=== PATIENT | female | born 1955 | race African-American/Black ===

== ENCOUNTER 2018-11-01 16:22 | Inpatient (IN) | payer OTHER ==
[~2018-11-01] VITALS: Ht 157.5 cm; Wt 103.0 kg
[~2018-11-01 16:22] MED LIST: ALBU8HFA IH; ASPI81 PO; CLON0.1T2 PO; DULO60CA44 PO; ESTR-95 PO; HYDR-4069 PO; LEVO50 PO; LURA80 PO; METO-558 PO; OMEP20 PO; OXCA300T29 PO; PRAV40TA4 PO; SPIR25 PO; [UNRECOGNIZED DRUG - CODE] INJ
[2018-11-01] MEDS ORDERED: ISOS60TA4 PO (17:04)
[2018-11-01] MEDS ORDERED: CHOL100018 PO (17:04)
[2018-11-01] MEDS ORDERED: LAMO100 PO (17:04)
[2018-11-01] MEDS ORDERED: VENL-67 PO (17:04)
[2018-11-01] MEDS ORDERED: LOSA50TA64 PO (17:04)
[2018-11-01 17:10] LABS: BASOPHILS % (AUTO) 0.9 % (0.0-2.0); EOSINOPHILS % (AUTO) 0.7 % (1.0-6.0); HEMATOCRIT 33.2 % (36-46); HEMOGLOBIN 11.2 g/dL (12.0-16.0); LYMPHOCYTES # (AUTO) 1.5 K/uL (1.0-4.8); LYMPHOCYTES % (AUTO) 19.8 % (22.0-44.0); MEAN CORPUSCULAR HEMOGLOBIN 31.7 pg (26.0-34.0); MEAN CORPUSCULAR HGB CONC 33.8 G/dL (31.0-37.0); MEAN CORPUSCULAR VOLUME 94 fL (80-100); MONOCYTES # (AUTO) 0.5 K/uL (0.1-1.0); MONOCYTES % (AUTO) 6.9 % (2.0-9.0); NEUTROPHILS # (AUTO) 5.3 K/uL (1.8-7.7); NEUTROPHILS % (AUTO) 71.7 % (40.0-70.0); PLATELET COUNT (AUTO) 405 K/uL (150-450); RED BLOOD CELL COUNT(AUTO) 3.54 MIL/uL (4.00-5.20); RED CELL DISTRIBUTION WIDTH 13.2 % (11.5-14.5)
[2018-11-01 17:19] LABS: ANION GAP 14 mmol/L (8-16); CALCIUM, TOTAL 9.1 mg/dL (8.8-10.5); CARBON DIOXIDE 21 mmol/L (22-29); CHLORIDE 101 mmol/L (98-107); CREATININE 1.02 mg/dL (0.60-1.30); GLOMERULAR FILTR. RATE CALC > 60 mL/min (>60); GLUCOSE,RANDOM 121 mg/dL (70-110); POTASSIUM 4.4 mmol/L (3.5-5.1); SODIUM SERUM 136 mmol/L (136-145); UREA NITROGEN, BLOOD 20 mg/dL (7-18)
[2018-11-01 17:34] LABS: B-TYPE NATRIURETIC PEPTIDE 92 pg/mL (0-100)
[2018-11-01 17:36] LABS: PROTHROMBIN TIME 10.2 SEC (9.4-11.6)
[2018-11-01 17:44] LABS: ALANINE AMINOTRANSFERASE 105 U/L (12-78); ALBUMIN 3.1 g/dL (3.4-5.0); ALKALINE PHOSPHATASE 193 U/L (46-116); ASPARTATE AMINOTRANSFERASE 299 U/L (15-37); BILIRUBIN,TOTAL 0.5 mg/dL (0.1-1.0); CREATINE KINASE, TOTAL ONLY 75 U/L (26-192); TOTAL PROTEIN, SERUM 7.1 g/dL (6.4-8.2)
[2018-11-01 18:51] LABS: APPEARANCE,URINE CLOUDY (CLEAR); BILIRUBIN,URINE PRELIM. POSITIVE (NEGATIVE); GLUCOSE, URINE (UA) NEGATIVE (NEGATIVE); KETONES,URINE NEGATIVE (NEGATIVE); LEUKOCYTE ESTERASE ,URINE TRACE (NEGATIVE); NITRATE,URINE NEGATIVE (NEGATIVE); OCCULT BLOOD,URINE NEGATIVE (NEGATIVE); PROTEIN,URINE POS 1+ (NEGATIVE)
[2018-11-01] MEDS ORDERED: KETOROLAC TROMETHAMINE 30 MG/ML VIAL IVP ONE (19:00)
[2018-11-01] MEDS ORDERED: SODIUM CHLORIDE 0.9% 1,000 ML IV ONE (19:00)
[2018-11-01] MEDS ORDERED: ONDANSETRON HCL 4 MG/2 ML VIAL IVP ONE (19:00)
[2018-11-01 19:01] LABS: BACTERIA,URINE Few /HPF (None Seen); CALCIUM OXALATE CRYSTALS,UR Moderate /LPF (None Seen); RBC,URINE 0-2 /HPF (0-2); SQUAMOUS EPITHELIAL CELL,UR Many /LPF (None Seen)
[2018-11-01] MEDS ORDERED: SODIUM CHLORIDE 0.9% 100 ML ONE (19:35)
[2018-11-01] MEDS ORDERED: IOVERSOL 350 MG/ML 150 ML VIAL ONE (19:35)
[2018-11-01 21:21] VITALS: BP 154/74
[2018-11-01] MEDS ORDERED: 0.9% SODIUM CHLORIDE 10 ML SYRINGE IVP PRN (21:30)
[2018-11-01] MEDS ORDERED: ONDANSETRON HCL 4 MG/2 ML VIAL IVP PRN (21:30)
[2018-11-01] MEDS ORDERED: ACETAMINOPHEN 325 MG TABLET PO PRN (21:30)
[2018-11-01 23:27] VITALS: BP 124/60
[2018-11-01] MEDS: MAG HYDROX/AL HYDROX/SIMETH 30 ML SUSP UDCUP PO PRN (23:27)
[2018-11-01] MEDS: ACETAMINOPHEN 325 MG TABLET PO PRN (23:29)
[2018-11-02 04:28] VITALS: BP 90/55
[2018-11-02] MEDS: LEVOTHYROXINE SODIUM 50 MCG TABLET PO SCH (05:46)
[2018-11-02] MEDS: MAG HYDROX/AL HYDROX/SIMETH 30 ML SUSP UDCUP PO PRN (05:46)
[2018-11-02 06:44] LABS: BASOPHILS % (AUTO) 0.1 % (0.0-2.0); EOSINOPHILS % (AUTO) 0.1 % (1.0-6.0); HEMATOCRIT 29.4 % (36-46); LYMPHOCYTES # (AUTO) 0.3 K/uL (1.0-4.8); LYMPHOCYTES % (AUTO) 2.2 % (22.0-44.0); MEAN CORPUSCULAR HEMOGLOBIN 31.9 pg (26.0-34.0); MEAN CORPUSCULAR HGB CONC 34.1 G/dL (31.0-37.0); MEAN CORPUSCULAR VOLUME 94 fL (80-100); MONOCYTES # (AUTO) 0.9 K/uL (0.1-1.0); MONOCYTES % (AUTO) 7.3 % (2.0-9.0); NEUTROPHILS # (AUTO) 10.8 K/uL (1.8-7.7); PLATELET COUNT (AUTO) 360 K/uL (150-450); RED BLOOD CELL COUNT(AUTO) 3.13 MIL/uL (4.00-5.20); RED CELL DISTRIBUTION WIDTH 13.6 % (11.5-14.5)
[2018-11-02 06:47] LABS: NEUTROPHILS % (AUTO) 90.3 % (40.0-70.0)
[2018-11-02 07:12] LABS: ALBUMIN 2.7 g/dL (3.4-5.0); BILIRUBIN,TOTAL 1.4 mg/dL (0.1-1.0); CALCIUM, TOTAL 8.4 mg/dL (8.8-10.5); CREATININE 1.45 mg/dL (0.60-1.30); POTASSIUM 3.7 mmol/L (3.5-5.1); TOTAL PROTEIN, SERUM 6.1 g/dL (6.4-8.2)
[2018-11-02 07:21] VITALS: BP 109/53
[2018-11-02] MEDS ORDERED: SPIRONOLACTONE 25 MG TABLET PO SCH (09:00)
[2018-11-02] MEDS ORDERED: LOSARTAN POTASSIUM 50 MG TABLET PO SCH (09:00)
[2018-11-02] MEDS ORDERED: FAMOTIDINE 10 MG/ML 2 ML VIAL IVP SCH ×2 (09:00)
[2018-11-02] MEDS: ASPIRIN 81 MG CHEWABLE TABLET PO SCH (09:19)
[2018-11-02] MEDS: LURASIDONE HCL 80 MG TABLET PO SCH ×2 (09:19→18:14)
[2018-11-02] MEDS: DULoxetine HCL 60 MG CAPSULE PO SCH (09:20)
[2018-11-02] MEDS: METOPROLOL SUCCINATE 50 MG ER TABLET PO SCH (09:20)
[2018-11-02] MEDS: OXcarbazepine 300 MG TABLET PO SCH ×2 (09:20→20:02)
[2018-11-02] MEDS: LamoTRIgine 100 MG TABLET PO SCH (09:20)
[2018-11-02] MEDS: ACETAMINOPHEN 325 MG TABLET PO PRN (09:25)
[2018-11-02] MEDS ORDERED: HYDROCODONE/ACETAMINOPHEN 10-325 MG TABLET PO PRN (10:45)
[2018-11-02] MEDS ORDERED: ESTRADIOL 1 MG TABLET PO ONE (10:45)
[2018-11-02] MEDS ORDERED: ONDANSETRON HCL 4 MG/2 ML VIAL IM PRN (11:00)
[2018-11-02] MEDS ORDERED: ALBUTEROL SULFATE 2.5 MG/0.5 ML NEB SOLUTION NEB PRN (11:00)
[2018-11-02] MEDS ORDERED: IPRATROPIUM BROMIDE 0.5 MG/2.5 ML NEB SOLUTION NEB PRN (11:00)
[2018-11-02 11:01] VITALS: BP 106/49
[2018-11-02] MEDS: SODIUM CHLORIDE 0.9% 1,000 ML IV SCH (11:06)
[2018-11-02] MEDS: MORPHINE SULFATE 2 MG/ML SYRINGE IVP PRN (11:37)
[2018-11-02] MEDS: CefTRIAXone 1 GM/DEXTROSE 50 ML IV SCH (11:38)
[2018-11-02] MEDS: ESTRADIOL 1 MG TABLET PO SCH (11:43)
[2018-11-02 12:44] LABS: THYROID STIMULATING HORMONE 0.8 uIU/mL (0.36-3.74)
[2018-11-02] MEDS: MetroNIDAZOLE 500 MG/NACL 100 ML IV SCH ×2 (13:04→20:02)
[2018-11-02 15:42] VITALS: BP 105/68
[2018-11-02] MEDS: HYDROCODONE/ACETAMINOPHEN 10-325 MG TABLET PO PRN (18:55)
[2018-11-02] MEDS: FAMOTIDINE 10 MG/ML 2 ML VIAL IVP SCH (20:02)
[2018-11-02] MEDS: CloNIDine HCL 0.1 MG TABLET PO SCH (20:04)
[2018-11-02 20:18] VITALS: BP 112/52
[2018-11-02] MEDS ORDERED: PRAVASTATIN SODIUM 40 MG TABLET PO SCH (21:00)
[2018-11-02 23:33] VITALS: BP 105/67
[2018-11-03] VITALS (8 sets, daily range): BP systolic 68–119; BP diastolic 49–66
[2018-11-03] MEDS: MetroNIDAZOLE 500 MG/NACL 100 ML IV SCH ×3 (04:03→21:45)
[2018-11-03] MEDS: SODIUM CHLORIDE 0.9% 1,000 ML IV SCH ×2 (04:03→17:59)
[2018-11-03] MEDS: LEVOTHYROXINE SODIUM 50 MCG TABLET PO SCH (05:37)
[2018-11-03 06:14] LABS: HEMATOCRIT 30.9 % (36-46); HEMOGLOBIN 10.5 g/dL (12.0-16.0); MEAN CORPUSCULAR HEMOGLOBIN 31.8 pg (26.0-34.0); MEAN CORPUSCULAR HGB CONC 33.9 G/dL (31.0-37.0); MEAN CORPUSCULAR VOLUME 94 fL (80-100); PLATELET COUNT (AUTO) 321 K/uL (150-450); RED BLOOD CELL COUNT(AUTO) 3.29 MIL/uL (4.00-5.20); RED CELL DISTRIBUTION WIDTH 14.2 % (11.5-14.5)
[2018-11-03 06:15] LABS: BAND NEUTROPHILS % (MANUAL) 0 % (0-5)
[2018-11-03] MEDS: HYDROCODONE/ACETAMINOPHEN 10-325 MG TABLET PO PRN ×3 (06:25→23:54)
[2018-11-03 06:27] LABS: ALANINE AMINOTRANSFERASE 83 U/L (12-78); ALBUMIN 2.6 g/dL (3.4-5.0); ALKALINE PHOSPHATASE 207 U/L (46-116); ANION GAP 13 mmol/L (8-16); ASPARTATE AMINOTRANSFERASE 87 U/L (15-37); BILIRUBIN,TOTAL 1.2 mg/dL (0.1-1.0); CALCIUM, TOTAL 8.5 mg/dL (8.8-10.5); CARBON DIOXIDE 22 mmol/L (22-29); CHLORIDE 107 mmol/L (98-107); CREATININE 1.08 mg/dL (0.60-1.30); GLOMERULAR FILTR. RATE CALC > 60 mL/min (>60); GLUCOSE,RANDOM 117 mg/dL (70-110); POTASSIUM 4.8 mmol/L (3.5-5.1); SODIUM SERUM 142 mmol/L (136-145); TOTAL PROTEIN, SERUM 6.7 g/dL (6.4-8.2); UREA NITROGEN, BLOOD 13 mg/dL (7-18)
[2018-11-03 06:35] LABS: LYMPHOCYTES % (MANUAL) 12 % (22-44); MONOCYTES % (MANUAL) 5 % (2-9); SEGMENTED NEUTROPHILS % 83 % (40-70)
[2018-11-03] MEDS: LURASIDONE HCL 80 MG TABLET PO SCH ×2 (08:00→18:06)
[2018-11-03] MEDS: OXcarbazepine 300 MG TABLET PO SCH ×2 (09:00→21:00)
[2018-11-03] MEDS: ASPIRIN 81 MG CHEWABLE TABLET PO SCH (09:00)
[2018-11-03] MEDS: METOPROLOL SUCCINATE 50 MG ER TABLET PO SCH (09:00)
[2018-11-03] MEDS: LamoTRIgine 100 MG TABLET PO SCH (09:00)
[2018-11-03] MEDS: ESTRADIOL 1 MG TABLET PO SCH (09:00)
[2018-11-03] MEDS: DULoxetine HCL 60 MG CAPSULE PO SCH (09:00)
[2018-11-03] MEDS: CefTRIAXone 1 GM/DEXTROSE 50 ML IV SCH (11:22)
[2018-11-03] MEDS: FAMOTIDINE 10 MG/ML 2 ML VIAL IVP SCH ×2 (11:22→21:45)
[2018-11-03] MEDS ORDERED: ROCURONIUM BROMIDE 10 MG/ML 5 ML VIAL IVP ONE (12:00)
[2018-11-03] MEDS ORDERED: SUCCINYLCHOLINE CHLORIDE 20 MG/ML 10 ML VIAL IVP ONE (12:00)
[2018-11-03] MEDS ORDERED: FentaNYL CITRATE-PF 100 MCG/2 ML VIAL IVP ONE (12:00)
[2018-11-03] MEDS ORDERED: LIDOCAINE/PF 2% 5 ML VIAL INJ ONE (12:00)
[2018-11-03] MEDS ORDERED: DEXAMETHASONE SOD PHOS 4 MG/ML VIAL IVP ONE (12:00)
[2018-11-03] MEDS ORDERED: MIDAZOLAM HCL 2 MG/2 ML VIAL IVP ONE (12:00)
[2018-11-03] MEDS ORDERED: PROPOFOL 1% 20 ML VIAL IVP ONE (12:00)
[2018-11-03] MEDS ORDERED: ONDANSETRON HCL 4 MG/2 ML VIAL IVP ONE (12:00)
[2018-11-03] MEDS ORDERED: KETOROLAC TROMETHAMINE 60 MG/2 ML VIAL IM ONE (12:00)
[2018-11-03] MEDS ORDERED: HYDROmorphone 2 MG/ML SYRINGE IVP ONE (12:00)
[2018-11-03] MEDS ORDERED: SODIUM CL IRRIG SOLN BAG 3,000 ML IRRIG ONE (13:29)
[2018-11-03] MEDS ORDERED: IOHEXOL 240 MG/ML 20 ML VIAL ONE (13:30)
[2018-11-03] MEDS ORDERED: BUPIVACAINE 0.25%/EPI 1:200,000/PF 10 ML VIAL ONE ×2 (13:30→13:31)
[2018-11-03] MEDS ORDERED: ACETAMINOPHEN 1000 MG/ISO-OSM 100 ML IV ONE (13:35)
[2018-11-03] MEDS ORDERED: SODIUM CHLORIDE 0.9% 1,000 ML IV ONE (15:30)
[2018-11-03] MEDS ORDERED: RINGERS SOLUTION,LACTATED 1,000 ML IV SCH (16:00)
[2018-11-03] MEDS ORDERED: SODIUM CHLORIDE 0.9% 500 ML IV ONE (17:00)
[2018-11-03] MEDS ORDERED: FentaNYL CITRATE-PF 100 MCG/2 ML VIAL IVP PRN (17:00)
[2018-11-03] MEDS ORDERED: HYDROmorphone 2 MG/ML SYRINGE IVP PRN (17:00)
[2018-11-03] MEDS ORDERED: RINGERS LACTATED IV SCH (20:48)
[2018-11-03] MEDS: OXYGEN THERAPY IH SCH (20:50)
[2018-11-03] MEDS ORDERED: RINGERS LACTATED IV ONE (21:00)
[2018-11-03] MEDS: CloNIDine HCL 0.1 MG TABLET PO SCH (21:00)
[2018-11-03] MEDS ORDERED: RINGERS SOLUTION,LACTATED 1,000 ML IV ONE (21:15)
[2018-11-03 21:17] LABS: BASOPHILS % (AUTO) 0.3 % (0.0-2.0); EOSINOPHILS % (AUTO) 0 % (1.0-6.0); HEMOGLOBIN 7.6 g/dL (12.0-16.0); LYMPHOCYTES # (AUTO) 0.8 K/uL (1.0-4.8); LYMPHOCYTES % (AUTO) 6.7 % (22.0-44.0); MEAN CORPUSCULAR HEMOGLOBIN 31.4 pg (26.0-34.0); MEAN CORPUSCULAR HGB CONC 32.9 G/dL (31.0-37.0); MEAN CORPUSCULAR VOLUME 95 fL (80-100); MONOCYTES # (AUTO) 0.6 K/uL (0.1-1.0); MONOCYTES % (AUTO) 5.3 % (2.0-9.0); NEUTROPHILS # (AUTO) 10.4 K/uL (1.8-7.7); PLATELET COUNT (AUTO) 361 K/uL (150-450); RED BLOOD CELL COUNT(AUTO) 2.41 MIL/uL (4.00-5.20); RED CELL DISTRIBUTION WIDTH 14.2 % (11.5-14.5)
[2018-11-03 21:20] LABS: NEUTROPHILS % (AUTO) 87.7 % (40.0-70.0)
[2018-11-03 21:32] LABS: INR 1.1 (0.9-1.1); PROTHROMBIN TIME 11.3 SEC (9.4-11.6)
[2018-11-04] VITALS (14 sets, daily range): BP systolic 94–139; BP diastolic 55–77
[2018-11-04] MEDS: MORPHINE SULFATE 2 MG/ML SYRINGE IVP PRN (02:44)
[2018-11-04] MEDS: ACETAMINOPHEN 325 MG TABLET PO PRN (04:35)
[2018-11-04] MEDS: MetroNIDAZOLE 500 MG/NACL 100 ML IV SCH ×3 (04:36→20:58)
[2018-11-04 05:11] LABS: GLUCOMETER DEV NAME(LOC) 5N.1; GLUCOSE,POINT OF CARE 174 MG/DL (70-110)
[2018-11-04] MEDS: HYDROCODONE/ACETAMINOPHEN 10-325 MG TABLET PO PRN ×2 (06:21→14:42)
[2018-11-04] MEDS: LEVOTHYROXINE SODIUM 50 MCG TABLET PO SCH (06:21)
[2018-11-04] MEDS: ONDANSETRON HCL 4 MG/2 ML VIAL IVP PRN ×2 (06:32→22:33)
[2018-11-04 06:36] LABS: BASOPHILS % (AUTO) 0.2 % (0.0-2.0); EOSINOPHILS % (AUTO) 0.4 % (1.0-6.0); HEMATOCRIT 24.6 % (36-46); HEMOGLOBIN 8.4 g/dL (12.0-16.0); LYMPHOCYTES # (AUTO) 1.1 K/uL (1.0-4.8); LYMPHOCYTES % (AUTO) 10.9 % (22.0-44.0); MEAN CORPUSCULAR HEMOGLOBIN 31.2 pg (26.0-34.0); MEAN CORPUSCULAR HGB CONC 34.3 G/dL (31.0-37.0); MEAN CORPUSCULAR VOLUME 91 fL (80-100); MONOCYTES # (AUTO) 0.6 K/uL (0.1-1.0); MONOCYTES % (AUTO) 5.9 % (2.0-9.0); NEUTROPHILS # (AUTO) 8.6 K/uL (1.8-7.7); NEUTROPHILS % (AUTO) 82.6 % (40.0-70.0); PLATELET COUNT (AUTO) 299 K/uL (150-450); RED CELL DISTRIBUTION WIDTH 16.2 % (11.5-14.5)
[2018-11-04 07:04] LABS: ALANINE AMINOTRANSFERASE 69 U/L (12-78); ALBUMIN 2.1 g/dL (3.4-5.0); ALKALINE PHOSPHATASE 156 U/L (46-116); ANION GAP 8 mmol/L (8-16); ASPARTATE AMINOTRANSFERASE 63 U/L (15-37); BILIRUBIN,TOTAL 0.4 mg/dL (0.1-1.0); CALCIUM, TOTAL 7.2 mg/dL (8.8-10.5); CARBON DIOXIDE 22 mmol/L (22-29); CHLORIDE 106 mmol/L (98-107); CREATININE 1.07 mg/dL (0.60-1.30); GLOMERULAR FILTR. RATE CALC > 60 mL/min (>60); GLUCOSE,RANDOM 138 mg/dL (70-110); POTASSIUM 4.7 mmol/L (3.5-5.1); SODIUM SERUM 136 mmol/L (136-145); TOTAL PROTEIN, SERUM 5.4 g/dL (6.4-8.2); UREA NITROGEN, BLOOD 12 mg/dL (7-18)
[2018-11-04] MEDS: HYDROmorphone 2 MG/ML SYRINGE IVP PRN ×4 (08:41→22:28)
[2018-11-04] MEDS: FAMOTIDINE 10 MG/ML 2 ML VIAL IVP SCH ×2 (08:43→20:59)
[2018-11-04] MEDS: OXYGEN THERAPY IH SCH ×2 (08:43→20:59)
[2018-11-04] MEDS: LamoTRIgine 100 MG TABLET PO SCH (10:32)
[2018-11-04] MEDS: METOPROLOL SUCCINATE 50 MG ER TABLET PO SCH (10:32)
[2018-11-04] MEDS: ESTRADIOL 1 MG TABLET PO SCH (10:32)
[2018-11-04] MEDS: DULoxetine HCL 60 MG CAPSULE PO SCH (10:32)
[2018-11-04] MEDS: LURASIDONE HCL 80 MG TABLET PO SCH ×2 (10:32→18:11)
[2018-11-04] MEDS: OXcarbazepine 300 MG TABLET PO SCH ×2 (10:33→20:59)
[2018-11-04] MEDS: CefTRIAXone 1 GM/DEXTROSE 50 ML IV SCH (10:33)
[2018-11-04] MEDS: SODIUM CHLORIDE 0.9% 1,000 ML IV SCH (18:12)
[2018-11-04] MEDS: CloNIDine HCL 0.1 MG TABLET PO SCH (20:59)
[2018-11-05] MEDS: MetroNIDAZOLE 500 MG/NACL 100 ML IV SCH ×3 (04:39→19:48)
[2018-11-05 04:45] VITALS: BP 115/58
[2018-11-05] MEDS: LEVOTHYROXINE SODIUM 50 MCG TABLET PO SCH (06:32)
[2018-11-05] MEDS: HYDROmorphone 2 MG/ML SYRINGE IVP PRN ×3 (06:44→18:08)
[2018-11-05 07:19] VITALS: BP 118/56
[2018-11-05 07:26] LABS: BASOPHILS % (AUTO) 0.8 % (0.0-2.0); EOSINOPHILS % (AUTO) 2.5 % (1.0-6.0); LYMPHOCYTES # (AUTO) 1.7 K/uL (1.0-4.8); LYMPHOCYTES % (AUTO) 19.7 % (22.0-44.0); MEAN CORPUSCULAR HEMOGLOBIN 31.6 pg (26.0-34.0); MEAN CORPUSCULAR HGB CONC 34.9 G/dL (31.0-37.0); MEAN CORPUSCULAR VOLUME 91 fL (80-100); MONOCYTES # (AUTO) 0.9 K/uL (0.1-1.0); NEUTROPHILS # (AUTO) 5.9 K/uL (1.8-7.7); PLATELET COUNT (AUTO) 287 K/uL (150-450); RED BLOOD CELL COUNT(AUTO) 2.15 MIL/uL (4.00-5.20); RED CELL DISTRIBUTION WIDTH 16.2 % (11.5-14.5)
[2018-11-05 07:38] LABS: ALANINE AMINOTRANSFERASE 47 U/L (12-78); ALKALINE PHOSPHATASE 128 U/L (46-116); ANION GAP 5 mmol/L (8-16); ASPARTATE AMINOTRANSFERASE 41 U/L (15-37); BILIRUBIN,TOTAL 0.3 mg/dL (0.1-1.0); CALCIUM, TOTAL 7.8 mg/dL (8.8-10.5); CARBON DIOXIDE 25 mmol/L (22-29); CHLORIDE 105 mmol/L (98-107); GLOMERULAR FILTR. RATE CALC > 60 mL/min (>60); GLUCOSE,RANDOM 108 mg/dL (70-110); POTASSIUM 4.3 mmol/L (3.5-5.1); SODIUM SERUM 135 mmol/L (136-145); TOTAL PROTEIN, SERUM 5.3 g/dL (6.4-8.2); UREA NITROGEN, BLOOD 6 mg/dL (7-18)
[2018-11-05 08:10] LABS: HEMATOCRIT 19.4 % (36-46); HEMOGLOBIN 6.8 g/dL (12.0-16.0)
[2018-11-05] MEDS: OXYGEN THERAPY IH SCH (08:32)
[2018-11-05] MEDS: SODIUM CHLORIDE 0.9% 1,000 ML IV SCH (08:32)
[2018-11-05] MEDS: OXcarbazepine 300 MG TABLET PO SCH ×2 (08:33→20:32)
[2018-11-05] MEDS: FAMOTIDINE 10 MG/ML 2 ML VIAL IVP SCH ×2 (08:33→20:32)
[2018-11-05] MEDS: LamoTRIgine 100 MG TABLET PO SCH (08:33)
[2018-11-05] MEDS: LURASIDONE HCL 80 MG TABLET PO SCH ×2 (08:33→18:07)
[2018-11-05] MEDS: ESTRADIOL 1 MG TABLET PO SCH (08:33)
[2018-11-05] MEDS: DULoxetine HCL 60 MG CAPSULE PO SCH (08:33)
[2018-11-05] MEDS: METOPROLOL SUCCINATE 50 MG ER TABLET PO SCH (09:00)
[2018-11-05 10:25] LABS: HEMOGLOBIN 6.7 g/dL (12.0-16.0)
[2018-11-05] MEDS: HYDROCODONE/ACETAMINOPHEN 10-325 MG TABLET PO PRN (12:25)
[2018-11-05] MEDS: CefTRIAXone 1 GM/DEXTROSE 50 ML IV SCH (12:25)
[2018-11-05] MEDS ORDERED: SODIUM CHLORIDE 0.9% 500 ML IV ONE (12:48)
[2018-11-05] MEDS: ACETAMINOPHEN 325 MG TABLET PO PRN (13:22)
[2018-11-05 15:58] VITALS: BP 113/59
[2018-11-05 18:16] LABS: HEMATOCRIT 24.6 % (36-46); HEMOGLOBIN 8.5 g/dL (12.0-16.0)
[2018-11-05 19:30] VITALS: BP 120/50
[2018-11-05] MEDS: CloNIDine HCL 0.1 MG TABLET PO SCH (20:32)
[2018-11-05 23:47] VITALS: BP 126/57
[2018-11-06] MEDS: OXYGEN THERAPY IH SCH ×3 (00:09→21:47)
[2018-11-06] MEDS: HYDROmorphone 2 MG/ML SYRINGE IVP PRN ×3 (00:10→16:20)
[2018-11-06] MEDS: MetroNIDAZOLE 500 MG/NACL 100 ML IV SCH ×3 (03:39→20:38)
[2018-11-06] MEDS: HYDROCODONE/ACETAMINOPHEN 10-325 MG TABLET PO PRN ×2 (03:44→19:06)
[2018-11-06 05:02] VITALS: BP 137/72
[2018-11-06] MEDS: LEVOTHYROXINE SODIUM 50 MCG TABLET PO SCH (06:02)
[2018-11-06] MEDS: SODIUM CHLORIDE 0.9% 1,000 ML IV SCH ×2 (06:02→18:01)
[2018-11-06 06:42] LABS: BASOPHILS % (AUTO) 0.9 % (0.0-2.0); HEMATOCRIT 26.5 % (36-46); HEMOGLOBIN 8.9 g/dL (12.0-16.0); LYMPHOCYTES # (AUTO) 2.1 K/uL (1.0-4.8); LYMPHOCYTES % (AUTO) 18.4 % (22.0-44.0); MEAN CORPUSCULAR HGB CONC 33.6 G/dL (31.0-37.0); MEAN CORPUSCULAR VOLUME 89 fL (80-100); MONOCYTES # (AUTO) 1.1 K/uL (0.1-1.0); MONOCYTES % (AUTO) 9.3 % (2.0-9.0); NEUTROPHILS # (AUTO) 7.7 K/uL (1.8-7.7); NEUTROPHILS % (AUTO) 67.4 % (40.0-70.0); PLATELET COUNT (AUTO) 335 K/uL (150-450); RED BLOOD CELL COUNT(AUTO) 2.96 MIL/uL (4.00-5.20); RED CELL DISTRIBUTION WIDTH 15.7 % (11.5-14.5)
[2018-11-06 07:03] LABS: ALANINE AMINOTRANSFERASE 43 U/L (12-78); ALBUMIN 2.1 g/dL (3.4-5.0); ALKALINE PHOSPHATASE 123 U/L (46-116); ANION GAP 5 mmol/L (8-16); ASPARTATE AMINOTRANSFERASE 39 U/L (15-37); BILIRUBIN,TOTAL 0.3 mg/dL (0.1-1.0); CALCIUM, TOTAL 8.2 mg/dL (8.8-10.5); CARBON DIOXIDE 26 mmol/L (22-29); CHLORIDE 105 mmol/L (98-107); CREATININE 0.82 mg/dL (0.60-1.30); GLOMERULAR FILTR. RATE CALC > 60 mL/min (>60); GLUCOSE,RANDOM 121 mg/dL (70-110); POTASSIUM 3.9 mmol/L (3.5-5.1); SODIUM SERUM 136 mmol/L (136-145); TOTAL PROTEIN, SERUM 5.4 g/dL (6.4-8.2); UREA NITROGEN, BLOOD 9 mg/dL (7-18)
[2018-11-06 08:24] VITALS: BP 129/72
[2018-11-06] MEDS: OXcarbazepine 300 MG TABLET PO SCH ×2 (09:07→20:37)
[2018-11-06] MEDS: FAMOTIDINE 10 MG/ML 2 ML VIAL IVP SCH ×2 (09:07→20:37)
[2018-11-06] MEDS: DULoxetine HCL 60 MG CAPSULE PO SCH (09:07)
[2018-11-06] MEDS: LamoTRIgine 100 MG TABLET PO SCH (09:07)
[2018-11-06] MEDS: METOPROLOL SUCCINATE 50 MG ER TABLET PO SCH (09:07)
[2018-11-06] MEDS: LURASIDONE HCL 80 MG TABLET PO SCH ×2 (09:07→17:59)
[2018-11-06] MEDS: ESTRADIOL 1 MG TABLET PO SCH (09:07)
[2018-11-06 10:59] VITALS: BP_SYST 138; BP_SYST 142; BP_DIAS 96
[2018-11-06 11:03] VITALS: BP 138/76
[2018-11-06] MEDS: CefTRIAXone 1 GM/DEXTROSE 50 ML IV SCH (11:36)
[2018-11-06 16:06] VITALS: BP 123/66
[2018-11-06] MEDS ORDERED: BISACODYL 10 MG RECTAL RECTAL SUPPOSITORY PR PRN (17:00)
[2018-11-06] MEDS: MAGNESIUM HYDROXIDE SUSPENSION 30 ML UDCUP PO PRN (17:59)
[2018-11-06 20:31] VITALS: BP 122/69
[2018-11-06] MEDS: CloNIDine HCL 0.1 MG TABLET PO SCH (20:37)
[2018-11-07] VITALS (7 sets, daily range): BP systolic 118–137; BP diastolic 50–96
[2018-11-07 03:12] LABS: APPEARANCE,URINE CLEAR (CLEAR); GLUCOSE, URINE (UA) NEGATIVE (NEGATIVE); KETONES,URINE NEGATIVE (NEGATIVE); LEUKOCYTE ESTERASE ,URINE SMALL (NEGATIVE); NITRATE,URINE POSITIVE (NEGATIVE); OCCULT BLOOD,URINE NEGATIVE (NEGATIVE); PROTEIN,URINE TRACE (NEGATIVE); UROBILINOGEN,URINE 0.2 mg/dL (<=1.0)
[2018-11-07 03:14] LABS: BILIRUBIN,URINE PRELIM. POSITIVE (NEGATIVE)
[2018-11-07 03:21] LABS: BACTERIA,URINE None Seen /HPF (None Seen); SQUAMOUS EPITHELIAL CELL,UR Rare /LPF (None Seen)
[2018-11-07] MEDS: MetroNIDAZOLE 500 MG/NACL 100 ML IV SCH ×3 (04:23→20:29)
[2018-11-07 06:17] LABS: BASOPHILS % (AUTO) 0.4 % (0.0-2.0); EOSINOPHILS % (AUTO) 4.2 % (1.0-6.0); HEMATOCRIT 22.4 % (36-46); HEMOGLOBIN 7.6 g/dL (12.0-16.0); LYMPHOCYTES # (AUTO) 2.3 K/uL (1.0-4.8); LYMPHOCYTES % (AUTO) 22.4 % (22.0-44.0); MEAN CORPUSCULAR HEMOGLOBIN 30.4 pg (26.0-34.0); MEAN CORPUSCULAR HGB CONC 33.7 G/dL (31.0-37.0); MEAN CORPUSCULAR VOLUME 90 fL (80-100); MONOCYTES # (AUTO) 1.4 K/uL (0.1-1.0); MONOCYTES % (AUTO) 13.5 % (2.0-9.0); NEUTROPHILS # (AUTO) 6.2 K/uL (1.8-7.7); NEUTROPHILS % (AUTO) 59.5 % (40.0-70.0); PLATELET COUNT (AUTO) 324 K/uL (150-450); RED BLOOD CELL COUNT(AUTO) 2.49 MIL/uL (4.00-5.20); RED CELL DISTRIBUTION WIDTH 15.7 % (11.5-14.5)
[2018-11-07] MEDS: LEVOTHYROXINE SODIUM 50 MCG TABLET PO SCH (06:37)
[2018-11-07] MEDS: HYDROCODONE/ACETAMINOPHEN 10-325 MG TABLET PO PRN ×3 (06:44→22:41)
[2018-11-07] MEDS: SODIUM CHLORIDE 0.9% 1,000 ML IV SCH ×2 (08:16→21:27)
[2018-11-07] MEDS: OXYGEN THERAPY IH SCH ×2 (08:17→21:18)
[2018-11-07] MEDS: LURASIDONE HCL 80 MG TABLET PO SCH ×2 (08:20→17:43)
[2018-11-07] MEDS: LamoTRIgine 100 MG TABLET PO SCH (08:21)
[2018-11-07] MEDS: DULoxetine HCL 60 MG CAPSULE PO SCH (08:21)
[2018-11-07] MEDS: FAMOTIDINE 10 MG/ML 2 ML VIAL IVP SCH ×2 (08:21→20:30)
[2018-11-07] MEDS: ESTRADIOL 1 MG TABLET PO SCH (08:21)
[2018-11-07] MEDS: OXcarbazepine 300 MG TABLET PO SCH ×2 (08:22→20:30)
[2018-11-07] MEDS: HYDROmorphone 2 MG/ML SYRINGE IVP PRN ×2 (08:23→17:44)
[2018-11-07] MEDS: METOPROLOL SUCCINATE 50 MG ER TABLET PO SCH (08:26)
[2018-11-07] MEDS: CefTRIAXone 1 GM/DEXTROSE 50 ML IV SCH (10:35)
[2018-11-07 12:16] LABS: BASOPHILS % (AUTO) 0.7 % (0.0-2.0); HEMATOCRIT 23.9 % (36-46); HEMOGLOBIN 8.3 g/dL (12.0-16.0); LYMPHOCYTES # (AUTO) 1.8 K/uL (1.0-4.8); LYMPHOCYTES % (AUTO) 18.5 % (22.0-44.0); MEAN CORPUSCULAR HEMOGLOBIN 31.1 pg (26.0-34.0); MEAN CORPUSCULAR HGB CONC 34.8 G/dL (31.0-37.0); MEAN CORPUSCULAR VOLUME 89 fL (80-100); MONOCYTES # (AUTO) 1.4 K/uL (0.1-1.0); MONOCYTES % (AUTO) 14.1 % (2.0-9.0); NEUTROPHILS # (AUTO) 6.3 K/uL (1.8-7.7); NEUTROPHILS % (AUTO) 62.7 % (40.0-70.0); PLATELET COUNT (AUTO) 322 K/uL (150-450); RED BLOOD CELL COUNT(AUTO) 2.68 MIL/uL (4.00-5.20); RED CELL DISTRIBUTION WIDTH 15.9 % (11.5-14.5)
[2018-11-07 18:56] LABS: BASOPHILS % (AUTO) 0.5 % (0.0-2.0); EOSINOPHILS % (AUTO) 4.3 % (1.0-6.0); HEMATOCRIT 22.6 % (36-46); HEMOGLOBIN 7.7 g/dL (12.0-16.0); LYMPHOCYTES # (AUTO) 2.1 K/uL (1.0-4.8); LYMPHOCYTES % (AUTO) 22.5 % (22.0-44.0); MEAN CORPUSCULAR HEMOGLOBIN 30.7 pg (26.0-34.0); MEAN CORPUSCULAR HGB CONC 34.2 G/dL (31.0-37.0); MEAN CORPUSCULAR VOLUME 90 fL (80-100); MONOCYTES # (AUTO) 1.1 K/uL (0.1-1.0); MONOCYTES % (AUTO) 12.5 % (2.0-9.0); NEUTROPHILS # (AUTO) 5.5 K/uL (1.8-7.7); NEUTROPHILS % (AUTO) 60.2 % (40.0-70.0); PLATELET COUNT (AUTO) 347 K/uL (150-450); RED BLOOD CELL COUNT(AUTO) 2.52 MIL/uL (4.00-5.20); RED CELL DISTRIBUTION WIDTH 15.6 % (11.5-14.5)
[2018-11-07] MEDS: CloNIDine HCL 0.1 MG TABLET PO SCH (20:30)
[2018-11-08] VITALS (9 sets, daily range): BP systolic 99–138; BP diastolic 47–71
[2018-11-08] MEDS: MetroNIDAZOLE 500 MG/NACL 100 ML IV SCH ×3 (04:39→20:14)
[2018-11-08] MEDS: LEVOTHYROXINE SODIUM 50 MCG TABLET PO SCH (05:56)
[2018-11-08] MEDS: HYDROCODONE/ACETAMINOPHEN 10-325 MG TABLET PO PRN ×3 (05:58→20:15)
[2018-11-08 06:32] LABS: BASOPHILS % (AUTO) 0.8 % (0.0-2.0); EOSINOPHILS % (AUTO) 3.9 % (1.0-6.0); HEMATOCRIT 21.8 % (36-46); HEMOGLOBIN 7.5 g/dL (12.0-16.0); LYMPHOCYTES % (AUTO) 22.1 % (22.0-44.0); MEAN CORPUSCULAR HGB CONC 34.4 G/dL (31.0-37.0); MEAN CORPUSCULAR VOLUME 90 fL (80-100); MONOCYTES # (AUTO) 1.2 K/uL (0.1-1.0); MONOCYTES % (AUTO) 13.3 % (2.0-9.0); NEUTROPHILS # (AUTO) 5.3 K/uL (1.8-7.7); NEUTROPHILS % (AUTO) 59.9 % (40.0-70.0); PLATELET COUNT (AUTO) 349 K/uL (150-450); RED BLOOD CELL COUNT(AUTO) 2.42 MIL/uL (4.00-5.20); RED CELL DISTRIBUTION WIDTH 15.6 % (11.5-14.5)
[2018-11-08 06:46] LABS: ANION GAP 6 mmol/L (8-16); CARBON DIOXIDE 29 mmol/L (22-29); CHLORIDE 102 mmol/L (98-107); GLUCOSE,RANDOM 95 mg/dL (70-110); POTASSIUM 4.2 mmol/L (3.5-5.1); SODIUM SERUM 137 mmol/L (136-145)
[2018-11-08 06:47] LABS: ALANINE AMINOTRANSFERASE 27 U/L (12-78); ALBUMIN 1.8 g/dL (3.4-5.0); ALKALINE PHOSPHATASE 107 U/L (46-116); ASPARTATE AMINOTRANSFERASE 25 U/L (15-37); BILIRUBIN,TOTAL 0.2 mg/dL (0.1-1.0); CALCIUM, TOTAL 8.1 mg/dL (8.8-10.5); GLOMERULAR FILTR. RATE CALC > 60 mL/min (>60); UREA NITROGEN, BLOOD 7 mg/dL (7-18)
[2018-11-08] MEDS: LURASIDONE HCL 80 MG TABLET PO SCH ×2 (08:36→18:32)
[2018-11-08] MEDS: OXYGEN THERAPY IH SCH ×2 (08:36→21:13)
[2018-11-08] MEDS: FAMOTIDINE 10 MG/ML 2 ML VIAL IVP SCH ×2 (08:38→20:14)
[2018-11-08] MEDS: ESTRADIOL 1 MG TABLET PO SCH (08:38)
[2018-11-08] MEDS: DULoxetine HCL 60 MG CAPSULE PO SCH (08:38)
[2018-11-08] MEDS: METOPROLOL SUCCINATE 50 MG ER TABLET PO SCH (08:39)
[2018-11-08] MEDS: LamoTRIgine 100 MG TABLET PO SCH (08:39)
[2018-11-08] MEDS: OXcarbazepine 300 MG TABLET PO SCH ×2 (08:39→20:14)
[2018-11-08] MEDS: HYDROmorphone 2 MG/ML SYRINGE IVP PRN ×2 (08:42→17:30)
[2018-11-08] MEDS: CefTRIAXone 1 GM/DEXTROSE 50 ML IV SCH (11:54)
[2018-11-08] MEDS: IRON SUCROSE COMPLEX 100 MG in SODIUM CHLORIDE 0.9% 100 ML IV SCH (14:23)
[2018-11-08] MEDS: SODIUM CHLORIDE 0.9% 1,000 ML IV SCH (14:27)
[2018-11-08] MEDS: CloNIDine HCL 0.1 MG TABLET PO SCH (20:14)
[2018-11-09] VITALS (10 sets, daily range): BP systolic 110–144; BP diastolic 48–66
[2018-11-09] MEDS: MetroNIDAZOLE 500 MG/NACL 100 ML IV SCH ×4 (04:08→21:00)
[2018-11-09] MEDS: LEVOTHYROXINE SODIUM 50 MCG TABLET PO SCH (06:11)
[2018-11-09 06:49] LABS: BASOPHILS % (AUTO) 0.8 % (0.0-2.0); EOSINOPHILS % (AUTO) 3.3 % (1.0-6.0); HEMATOCRIT 24.1 % (36-46); HEMOGLOBIN 8.3 g/dL (12.0-16.0); LYMPHOCYTES # (AUTO) 2.1 K/uL (1.0-4.8); MEAN CORPUSCULAR HEMOGLOBIN 30.9 pg (26.0-34.0); MEAN CORPUSCULAR HGB CONC 34.3 G/dL (31.0-37.0); MEAN CORPUSCULAR VOLUME 90 fL (80-100); MONOCYTES # (AUTO) 1.1 K/uL (0.1-1.0); MONOCYTES % (AUTO) 10.6 % (2.0-9.0); NEUTROPHILS % (AUTO) 65.3 % (40.0-70.0); PLATELET COUNT (AUTO) 343 K/uL (150-450); RED BLOOD CELL COUNT(AUTO) 2.67 MIL/uL (4.00-5.20); RED CELL DISTRIBUTION WIDTH 15.4 % (11.5-14.5)
[2018-11-09] MEDS: OXYGEN THERAPY IH SCH ×2 (07:51→21:01)
[2018-11-09] MEDS: LURASIDONE HCL 80 MG TABLET PO SCH ×2 (07:51→17:39)
[2018-11-09] MEDS: FAMOTIDINE 10 MG/ML 2 ML VIAL IVP SCH ×2 (07:53→20:20)
[2018-11-09] MEDS: ESTRADIOL 1 MG TABLET PO SCH (07:53)
[2018-11-09] MEDS: DULoxetine HCL 60 MG CAPSULE PO SCH (07:53)
[2018-11-09] MEDS: LamoTRIgine 100 MG TABLET PO SCH (07:54)
[2018-11-09] MEDS: METOPROLOL SUCCINATE 50 MG ER TABLET PO SCH (07:55)
[2018-11-09] MEDS: OXcarbazepine 300 MG TABLET PO SCH ×2 (07:55→20:21)
[2018-11-09] MEDS: HYDROCODONE/ACETAMINOPHEN 10-325 MG TABLET PO PRN ×3 (07:56→22:52)
[2018-11-09] MEDS: MAGNESIUM HYDROXIDE SUSPENSION 30 ML UDCUP PO PRN (08:16)
[2018-11-09] MEDS: CefTRIAXone 1 GM/DEXTROSE 50 ML IV SCH (10:53)
[2018-11-09] MEDS: IRON SUCROSE COMPLEX 100 MG in SODIUM CHLORIDE 0.9% 100 ML IV SCH (12:30)
[2018-11-09] MEDS: HYDROmorphone 2 MG/ML SYRINGE IVP PRN ×2 (12:37→18:36)
[2018-11-09] MEDS: SODIUM CHLORIDE 0.9% 1,000 ML IV SCH ×3 (17:39→22:38)
[2018-11-09] MEDS: CloNIDine HCL 0.1 MG TABLET PO SCH (20:21)
[2018-11-10] MEDS: MetroNIDAZOLE 500 MG/NACL 100 ML IV SCH ×2 (04:48→12:32)
[2018-11-10] MEDS: HYDROCODONE/ACETAMINOPHEN 10-325 MG TABLET PO PRN ×2 (05:00→13:35)
[2018-11-10 05:08] VITALS: BP 139/55
[2018-11-10] MEDS: LEVOTHYROXINE SODIUM 50 MCG TABLET PO SCH (06:12)
[2018-11-10 06:34] LABS: BASOPHILS % (AUTO) 0.7 % (0.0-2.0); EOSINOPHILS % (AUTO) 2.1 % (1.0-6.0); HEMATOCRIT 24.5 % (36-46); HEMOGLOBIN 8.2 g/dL (12.0-16.0); LYMPHOCYTES # (AUTO) 2.2 K/uL (1.0-4.8); LYMPHOCYTES % (AUTO) 17.9 % (22.0-44.0); MEAN CORPUSCULAR HEMOGLOBIN 30.5 pg (26.0-34.0); MEAN CORPUSCULAR HGB CONC 33.6 G/dL (31.0-37.0); MEAN CORPUSCULAR VOLUME 91 fL (80-100); MONOCYTES # (AUTO) 1.2 K/uL (0.1-1.0); MONOCYTES % (AUTO) 9.9 % (2.0-9.0); NEUTROPHILS # (AUTO) 8.4 K/uL (1.8-7.7); NEUTROPHILS % (AUTO) 69.4 % (40.0-70.0); PLATELET COUNT (AUTO) 394 K/uL (150-450); RED CELL DISTRIBUTION WIDTH 15.5 % (11.5-14.5)
[2018-11-10 07:34] VITALS: BP 133/72
[2018-11-10] MEDS: FAMOTIDINE 10 MG/ML 2 ML VIAL IVP SCH (09:53)
[2018-11-10] MEDS: LURASIDONE HCL 80 MG TABLET PO SCH (09:55)
[2018-11-10] MEDS: METOPROLOL SUCCINATE 50 MG ER TABLET PO SCH (09:55)
[2018-11-10] MEDS: LamoTRIgine 100 MG TABLET PO SCH (09:56)
[2018-11-10] MEDS: DULoxetine HCL 60 MG CAPSULE PO SCH (09:56)
[2018-11-10] MEDS: ESTRADIOL 1 MG TABLET PO SCH (09:57)
[2018-11-10] MEDS: OXcarbazepine 300 MG TABLET PO SCH (09:57)
[2018-11-10] MEDS: HYDROmorphone 2 MG/ML SYRINGE IVP PRN ×2 (09:58→17:46)
[2018-11-10] MEDS: OXYGEN THERAPY IH SCH (10:17)
[2018-11-10 11:18] VITALS: BP 146/70
[2018-11-10 11:29] LABS: APPEARANCE,URINE CLEAR (CLEAR); BILIRUBIN,URINE NEGATIVE (NEGATIVE); GLUCOSE, URINE (UA) NEGATIVE (NEGATIVE); KETONES,URINE NEGATIVE (NEGATIVE); LEUKOCYTE ESTERASE ,URINE NEGATIVE (NEGATIVE); NITRATE,URINE NEGATIVE (NEGATIVE); OCCULT BLOOD,URINE NEGATIVE (NEGATIVE); PH,URINE 7.5 (5.0-8.0); PROTEIN,URINE NEGATIVE (NEGATIVE); UROBILINOGEN,URINE 0.2 mg/dL (<=1.0)
[2018-11-10] MEDS: CefTRIAXone 1 GM/DEXTROSE 50 ML IV SCH (11:37)
[2018-11-10] MEDS: IRON SUCROSE COMPLEX 100 MG in SODIUM CHLORIDE 0.9% 100 ML IV SCH (13:38)
[2018-11-10] MEDS ORDERED: SODIUM CHLORIDE 0.9% 100 ML ONE (13:39)
[2018-11-10 15:30] VITALS: BP_SYST 111; BP_SYST 112; BP_SYST 114; BP_DIAS 57; BP_DIAS 73; BP_DIAS 78
[2018-11-10] MEDS: SODIUM CHLORIDE 0.9% 1,000 ML IV SCH (15:40)
[2018-11-10 15:47] VITALS: BP 114/51
[2018-11-10] MEDS: MAGNESIUM HYDROXIDE SUSPENSION 30 ML UDCUP PO PRN (16:29)
== END 2018-11-10 18:00 | DRG 263 ==
LOC: EMS 16:22 → 5S 19:00
PROVIDERS: ADMIT Internal Medicine; ATTEND Internal Medicine
PROC: BF131ZZ Fluoroscopy of Gallbladder and Bile Ducts using Low Osmolar Contrast (ICD-10-PCS; 2018-11-03)
PROC: 0FT44ZZ Resection of Gallbladder, Percutaneous Endoscopic Approach (ICD-10-PCS; principal; 2018-11-03 14:00)
PROC: 30233N1 Transfusion of Nonautologous Red Blood Cells into Peripheral Vein, Percutaneous Approach (ICD-10-PCS; 2018-11-04)
PROC: 30233N1 Transfusion of Nonautologous Red Blood Cells into Peripheral Vein, Percutaneous Approach (ICD-10-PCS; 2018-11-05)
DX: K80.00 Calculus of gallbladder with acute cholecystitis without obstruction (principal); N17.0 Acute kidney failure with tubular necrosis; R65.11 Systemic inflammatory response syndrome (SIRS) of non-infectious origin with acute organ dysfunction; E44.0 Moderate protein-calorie malnutrition; S09.90XA Unspecified injury of head, initial encounter; E11.9 Type 2 diabetes mellitus without complications; D64.9 Anemia, unspecified; E03.9 Hypothyroidism, unspecified; E78.00 Pure hypercholesterolemia, unspecified; E78.5 Hyperlipidemia, unspecified; I10 Essential (primary) hypertension; M79.7 Fibromyalgia; E66.9 Obesity, unspecified; E86.0 Dehydration; F32.9 Major depressive disorder, single episode, unspecified; I25.10 Atherosclerotic heart disease of native coronary artery without angina pectoris; N39.0 Urinary tract infection, site not specified; X58.XXXA Exposure to other specified factors, initial encounter; Z98.84 Bariatric surgery status; Z90.710 Acquired absence of both cervix and uterus; Z88.0 Allergy status to penicillin; Z86.711 Personal history of pulmonary embolism; Z86.011 Personal history of benign neoplasm of the brain; Z82.3 Family history of stroke; Y93.89 Activity, other specified; Y92.89 Other specified places as the place of occurrence of the external cause; Y99.8 Other external cause status; Z79.899 Other long term (current) drug therapy; Z79.82 Long term (current) use of aspirin; Z68.41 Body mass index [BMI] 40.0-44.9, adult
CPT/HCPCS: 70450; 72125; 74177; 76700; 80074; 83036; 84145; 84443; 85014; 85018; 86850; 86900; 86901; 86920; 87040; 87086; 88304; 93005; 93306; 93880; 96374; 96375; 97110; 97116; 97162; 97166; 97530; 97535; G0238; J0131; J0330; J0696; J1100; J1170; J1756; J1885; J2250; J2270; J2405; J2704; J3010; J3490; J7030; J7040; J7050; P9016; Q9966

== ENCOUNTER 2024-03-30 11:01 | Emergency (ER) | payer MEDICARE, OTHER ==
[~2024-03-30] VITALS: Ht 157.5 cm; Wt 77.3 kg
[~2024-03-30 11:01] MED LIST changes: -ALBU8HFA IH; +ASPI-1444 PO; -ASPI81 PO; +CHOL25TA4 PO; -CLON0.1T2 PO; +DOXE10CA2 PO; +DULO-113 PO; -DULO60CA44 PO; +FLUT16H NASAL; +GLYC1TAB27 PO; +HYDR30CR3 TP; +ISOS60TA77 PO; +LAMO-24 PO; +LOSA-382 PO; -LURA80 PO; +LURA80TA2 PO; +MELO-108 PO; +METO-325 PO; -METO-558 PO; -OXCA300T29 PO; +OXCA300T70 PO; +RAME8TAB24 PO; -SPIR25 PO; -[UNRECOGNIZED DRUG - CODE] INJ
[2024-03-30 11:09] VITALS: TEMP 98.3
[2024-03-30] MEDS ORDERED: HYDR-3831 PO (11:20)
[2024-03-30] MEDS ORDERED: LUBI24CA40 PO (11:20)
[2024-03-30] MEDS ORDERED: DEUT6TAB PO (11:20)
[2024-03-30] MEDS ORDERED: TRAM50TA5 PO (11:20)
[2024-03-30] MEDS ORDERED: OS500 PO (11:20)
[2024-03-30] MEDS ORDERED: BENZ-247 PO (11:20)
[2024-03-30] MEDS ORDERED: ROSU20TA98 PO (11:20)
[2024-03-30 11:31] LABS: BASOPHILS % (AUTO) 0.5 % (0.0-2.0); EOSINOPHILS % (AUTO) 2.3 % (1.0-6.0); HEMATOCRIT 37.7 % (36-46); HEMOGLOBIN 12.6 g/dL (12.0-16.0); LYMPHOCYTES # (AUTO) 2.6 K/uL (1.0-4.8); LYMPHOCYTES % (AUTO) 38.9 % (22.0-44.0); MEAN CORPUSCULAR HEMOGLOBIN 32.4 pg (26.0-34.0); MEAN CORPUSCULAR HGB CONC 33.5 G/dL (31.0-37.0); MEAN CORPUSCULAR VOLUME 97 fL (80-100); MONOCYTES # (AUTO) 0.5 K/uL (0.1-1.0); MONOCYTES % (AUTO) 7.3 % (2.0-9.0); NEUTROPHILS # (AUTO) 3.4 K/uL (1.8-7.7); PLATELET COUNT (AUTO) 395 K/uL (150-450); WHITE BLOOD COUNT (AUTO) 6.6 K/uL (4.5-11.0)
[2024-03-30 11:40] LABS: ANION GAP 10 mmol/L (8-16); CALCIUM, TOTAL 9.5 mg/dL (8.8-10.5); CARBON DIOXIDE 26 mmol/L (22-29); CHLORIDE 101 mmol/L (98-107); CREATININE 1.33 mg/dL (0.60-1.30); GLOMERULAR FILTR. RATE CALC 48 mL/min (>60); GLUCOSE,RANDOM 97 mg/dL (70-110); POTASSIUM 3.8 mmol/L (3.5-5.1); SODIUM SERUM 137 mmol/L (136-145); UREA NITROGEN, BLOOD 21 mg/dL (7-18)
[2024-03-30 11:50] LABS: LIPASE 13 U/L (16-77); TROPONIN I-HIGH SENSITIVITY 4 ng/L (<51)
[2024-03-30 13:19] LABS: ALANINE AMINOTRANSFERASE 21 U/L (12-78); ALKALINE PHOSPHATASE 81 U/L (46-116); ASPARTATE AMINOTRANSFERASE 25 U/L (15-37); BILIRUBIN,TOTAL 0.2 mg/dL (0.1-1.0); TOTAL PROTEIN, SERUM 7.3 g/dL (6.4-8.2)
[2024-03-30] MEDS: SODIUM CHLORIDE 0.9% 1,000 ML IV ONE (13:24)
[2024-03-30] MEDS: IOHEXOL 9 MG/ML 500 ML BOTTLE PO ONE (13:24)
[2024-03-30] MEDS: MORPHINE SULFATE 4 MG/ML SYRINGE IVP ONE (13:25)
[2024-03-30] MEDS: ONDANSETRON HCL 4 MG/2 ML VIAL IVP ONE (13:25)
[2024-03-30] MEDS ORDERED: IOHEXOL 350 MG/ML 100 ML VIAL ONE (13:31)
[2024-03-30] MEDS ORDERED: SODIUM CHLORIDE 0.9% 100 ML ONE (13:32)
[2024-03-30 15:10] LABS: APPEARANCE,URINE CLEAR (CLEAR); BILIRUBIN,URINE NEGATIVE (NEGATIVE); COLOR,URINE LIGHT YELLOW (YELLOW); GLUCOSE, URINE (UA) NEGATIVE (NEGATIVE); KETONES,URINE NEGATIVE (NEGATIVE); LEUKOCYTE ESTERASE ,URINE SMALL (NEGATIVE); NITRATE,URINE NEGATIVE (NEGATIVE); OCCULT BLOOD,URINE NEGATIVE (NEGATIVE); PROTEIN,URINE 30-70 mg/dL (NEGATIVE); SPECIFIC GRAVITIY, URINE 1.032 (1.003-1.030); UROBILINOGEN,URINE <=1.0 mg/dL (<=1.0)
[2024-03-30 15:26] LABS: BACTERIA,URINE None Seen /HPF (None Seen); RBC,URINE None Seen /HPF (0-2); SQUAMOUS EPITHELIAL CELL,UR Few /LPF (None Seen)
[2024-03-30] MEDS ORDERED: DOCU-385 PO (16:03)
[2024-03-30] MEDS ORDERED: LEVO750T68 PO (16:03)
[2024-03-30] MEDS: LEVOFLOXACIN 250 MG TABLET PO ONE (16:33)
[2024-03-30] MEDS: SODIUM PHOSPHATE,MONO-DIBASIC 133 ML ENEMA PR ONE (16:33)
[2024-03-30] MEDS: DOCUSATE SODIUM 100 MG CAPSULE PO ONE (16:33)
[2024-03-30 16:42] VITALS: BP 123/74; PULSE 92; RESP 16; O2SAT 98
== END 2024-03-30 16:43 | disposition home or self-care (01) ==
LOC: EMS 11:01
DX: K59.00 Constipation, unspecified (principal); N39.0 Urinary tract infection, site not specified; E78.00 Pure hypercholesterolemia, unspecified; I10 Essential (primary) hypertension; Z79.82 Long term (current) use of aspirin; Z79.899 Other long term (current) drug therapy; Z86.711 Personal history of pulmonary embolism; Z88.0 Allergy status to penicillin; Z90.710 Acquired absence of both cervix and uterus; Z98.84 Bariatric surgery status
CPT/HCPCS: 99285; 74177; 96374; 96361; 96375; 80048; 80076; 81001; 83690; 84484; 85025; 87086; 36415; Q9967 ×2; J2270; J2405; J7030; J7050